=== PATIENT | female | born 1995 | race Two or more races ===

== ENCOUNTER 2020-12-15 21:18 | Observation (INO) | payer MEDICAID ==
[~2020-12-15] VITALS: Ht 170.2 cm; Wt 89.8 kg
[2020-12-15] MEDS ORDERED: LABETALOL HCL 200 MG TAB PO ONE (22:00)
[2020-12-15] MEDS ORDERED: BETAMETHASONE ACET (6MG/ML) 5ML VIAL IM ONE (22:00)
[2020-12-15] MEDS ORDERED: BETAMETHASONE ACET (6MG/ML) 5ML VIAL ONE (22:09)
[2020-12-15] MEDS ORDERED: LABETALOL HCL 200 MG TAB ONE ×2 (22:09→23:57)
[2020-12-15 22:32] LABS: Basophils # (auto) 0.1 10 ^3/uL (0-0.2); Basophils % (auto) 0.7 % (0.0-2.0); Eosinophils # (auto) 0.1 10 ^3/uL (0-0.8); Eosinophils % (auto) 0.9 % (0.0-7.0); Hematocrit 37.1 % (36.0-46.0); Hemoglobin 13.3 g/dL (12.2-16.2); Lymphocytes # (auto) 1.5 10 ^3/uL (0.4-5.4); Lymphocytes % (auto) 17.4 % (10.0-50.0); Mean Corpuscular Hemoglobin 31.5 pg (28.0-32.0); Mean Corpuscular Hgb Conc. 35.9 g/dL (32.0-36.0); Mean Corpuscular Volume 87.8 fL (80.0-100.0); Monocytes # (auto) 0.7 10 ^3/uL (0-1.3); Neutrophils # (auto) 6.5 10 ^3/uL (1.6-8.6); Nucleated Red Blood Cells % 0.2 %; Platelet Count (auto) 156 10^3/uL (140-450); Red Blood Cells 4.22 10^6/uL (4.0-5.20); Red Cell Distribution Width 13.1 % (11.8-14.3); White Blood Cell 8.8 10^3/uL (4.4-10.8)
[2020-12-15 22:41] LABS: Urine Bacteria FEW /hpf (None Seen); Urine Blood TRACE /uL (Negative); Urine WBC 48 /hpf (0 - 5)
[2020-12-15 22:47] LABS: INR 0.83 (0.9-1.15); Partial Thromboplastin Time 23.8 sec (23.0-31.2)
[2020-12-15 22:50] LABS: Albumin 1.8 g/dL (3.4-5.0); Calcium 7.8 mg/dL (8.5-10.1)
[2020-12-15 22:51] LABS: Alcohol, Urine < 3.0 mg/dL (0-10); Amphetamine Screen, Urine NEGATIVE (NEGATIVE); Barbiturate Scree,Urine NEGATIVE (NEGATIVE); Benzodiazephine Screen, Urine NEGATIVE (NEGATIVE); Cannabinoid Screen, Urine NEGATIVE (NEGATIVE); Cocaine Screen, Urine NEGATIVE (NEGATIVE); Opiate Scree,Urine NEGATIVE (NEGATIVE); Phencyclidine Screen, Urine NEGATIVE (NEGATIVE)
[2020-12-15 22:54] LABS: BUN/Creatinine Ratio 29.1; Bilirubin, Total 0.2 mg/dL (0.2-1.0); Total Protein 5.4 g/dL (6.4-8.2); Uric Acid 8.4 mg/dL (2.6-6.0)
[2020-12-15] MEDS ORDERED: IPRATROPIUM BROM 0.5 MG/2.5ML INH SOL ONE (23:27)
[2020-12-15] MEDS ORDERED: ALBUTEROL SULF 2.5 MG/0.5ML(0.5%) NEB SOLN ONE (23:27)
[2020-12-15] MEDS ORDERED: hydrALAZINE HCL 20 MG/ML VL ONE (23:30)
[2020-12-15] MEDS: hydrALAZINE HCL 20 MG/ML VL IV PRN ×2 (23:33→23:55)
[2020-12-16] MEDS ORDERED: ceFAZolin 1GM 2 GM in D5W 5% 100 ML IV ONE (00:15)
[2020-12-16] MEDS ORDERED: LABETALOL HCL 200 MG TAB PO ONE (00:15)
[2020-12-16] MEDS ORDERED: ceFAZolin 1GM/50ML 100 ML IV ONE (00:26)
[2020-12-16] MEDS: hydrALAZINE HCL 20 MG/ML VL IV PRN ×2 (00:38→00:54)
== END 2020-12-16 01:12 | disposition short-term general hospital (02) ==
LOC: LDRP 21:18
PROVIDERS: ADMIT Obstetrics & Gynecology; ATTEND Obstetrics & Gynecology
DX: O13.3 Gestational [pregnancy-induced] hypertension without significant proteinuria, third trimester (principal); Z20.822 Contact with and (suspected) exposure to COVID-19; O40.3XX0 Polyhydramnios, third trimester, not applicable or unspecified; O26.893 Other specified pregnancy related conditions, third trimester; R06.02 Shortness of breath; Z3A.32 32 weeks gestation of pregnancy
CPT/HCPCS: 36415; 59025; 71045; 76815; 76818; 80053; 80307; 81001; 81002; 84550; 85025; 85362; 85379; 85610; 85730; 86850; 86900; 86901; 87426; 94640; 94760; 96361; 96365; 96372; 96375; 96376; G0378; J0360; J0690; J0702; J7060; 96360; 96374